=== PATIENT | male | born 1990 | race Caucasian/White ===

== ENCOUNTER 2021-03-18 04:23 | Emergency (ER) | payer BC ==
[2021-03-18] MEDS ORDERED: Ketorolac 30 MG/ML SDV IM ONE (04:50)
--- NOTE | 2021-03-18 05:05 | EDM.PDOC ---
ED HPI GENERAL MEDICAL PROBLEM - General Chief Complaint: Headache Stated Complaint: DIZZY Time Seen by Provider: 03/18/21 04:45 Source of Information: Reports: Patient History Limitations: Reports: No Limitations - History of Present Illness INITIAL COMMENTS - FREE TEXT/NARRATIVE: 30-year-old male arrives with a frontal headache for the past 6 days. No nausea or vomiting, no visual complaints, however the headache is been fairly persistent and this morning he stumbled and kind of tripped over himself which is unusual. He is concerned that the headache is persistent and his balance is off because there is "something wrong with my shunt". He has a [employer] shunt since he was a baby, he has never had problems with that but did have 1 or 2 surgical adjustments over the years. He does occasionally get headaches but they are very rarely this persistent. He has been taking Tylenol which helps "a little". He is vaccinated for Covid, has had no fevers or chills or illness. Onset: Gradual Duration: Day(s): (6 days of headache) Location: Reports: Other (Frontal headache, behind his eyes) Quality: Reports: Dull, Pressure Improves with: Reports: Other (Tylenol helps somewhat) Associated Symptoms: Reports: Headaches, Other (Concerned about his balance). Denies: Confusion, Weakness Middle Frontal Headache Pain Score (Numeric/FACES): 7 - Related Data Allergies Allergy/AdvReac Type Severity Reaction Status Date / Time Cephalosporins Allergy Cannot Verified 03/18/21 04:32 Remember Penicillins Allergy Cannot Verified 03/18/21 04:32 Remember Home Meds: Home Meds Escitalopram [Lexapro] 20 mg PO DAILY 03/18/21 [History] levETIRAcetam [Keppra] 500 mg PO DAILY 03/18/21 [History] Past Medical History HEENT History: Reports: Impaired Vision Musculoskeletal History: Reports: Fracture Other Musculoskeletal History: nose broken Neurological History: Reports: Seizure Psychiatric History: Reports: Anxiety - Infectious Disease History Infectious Disease History: Reports: Novel Coronavirus - Past Surgical History Neurological Surgical History: Reports: Other (See Below) Other Neurological Surgeries/Procedures: shunt Social & Family History - Tobacco Use Tobacco Use Status *Q: Never Tobacco User - Caffeine Use Caffeine Use: Reports: None - Recreational Drug Use Recreational Drug Use: No ED ROS GENERAL - Review of Systems Review Of Systems: See Below Constitutional: Denies: Fever, Chills, Malaise HEENT: Denies: Vision Change Respiratory: Denies: Shortness of Breath Cardiovascular: Denies: Chest Pain GI/Abdominal: Denies: Nausea, Vomiting Skin: Reports: No Symptoms Neurological: Reports: Dizziness, Headache Psychiatric: Reports: No Symptoms - Physical Exam Exam: See Below Exam Limited By: No Limitations General Appearance: Alert, No Apparent Distress Eye Exam: Bilateral Eye: Normal Inspection, PERRL Head Exam: Atraumatic. No: Facial Tenderness, Sinus Tenderness Neck: Supple, Non-Tender Respiratory/Chest: No Respiratory Distress, Lungs Clear GI/Abdominal: Non-Tender Neuro Exam (Abbreviated): Alert, Oriented, No Motor/Sensory Deficits, Other (Romberg is negative, no pronator drift) Extremities: Normal Inspection Psychiatric: Normal Affect, Normal Mood Course - Vital Signs Last Recorded V/S: Last Vital Signs Temp 95.9 F L 03/18/21 04:39 Pulse 96 03/18/21 04:39 Resp 16 03/18/21 04:39 BP 151/99 H 03/18/21 04:39 Pulse Ox 100 03/18/21 04:39 - Orders/Labs/Meds Orders: Active Orders 24 hr Category Date Time Status Isolation [COMM] Stat Oth 03/18/21 04:51 Ordered Labs: Laboratory Tests 03/18/21 Range/Units 05:08 Influenza Type A RNA Negative (NEGATIVE) RSV RNA ([facility]) Negative (NEGATIVE) Influenza Type B RNA Negative (NEGATIVE) SARS-CoV-2 RNA ([facility]) Negative (NEGATIVE) Meds: Medications Discontinued Medications Generic Name Dose Route Start Last Admin Trade Name Juvenal PRN Reason Stop Dose Admin Ketorolac Tromethamine 30 mg 03/18/21 04:50 03/18/21 04:58 Ketorolac 30 Mg/Ml Sdv IM 03/18/21 04:51 30 mg ONETIME ONE Administration - Re-Assessments/Exams Free Text/Narrative Re-Assessment/Exam: 03/18/21 05:05 Patient was given 30 mg of IM Toradol, CT scan of the head without contrast was ordered and a 4 Plex viral study. 03/18/21 05:54 After the Toradol shot his pain went from a 7 to a 3, CT scan was reassuring as there was no interval change, ventricular sizes were normal and shunt was in correct placement. 4 Plex viral study was negative. He was encouraged to rest for the next day or 2, take an anti-inflammatory on a regular basis and increase activity as tolerated. Departure - Departure Time of Disposition: 05:57 Disposition: Home, Self-Care 01 Clinical Impression: Frontal headache - Discharge Information Instructions: General Headache Without Cause, [id number] Referrals: PCP,None [Primary Care Provider] - Forms: ED Department Discharge Care Plan Goals: Take ibuprofen several times daily for the next couple of days, along with Tylenol if needed. Stay hydrated, increase activity as tolerated and return to work by . Return for recheck if not improving satisfactorily. Sepsis Event Note (ED) - Evaluation Sepsis Screening Result: No Definite Risk - Focused Exam Vital Signs: Vital Signs Temp Pulse Resp BP Pulse Ox 03/18/21 04:39 95.9 F L 96 16 151/99 H 100 - My Orders Last 24 Hours: My Active Orders 03/18/21 04:51 Isolation [COMM] Stat - Assessment/Plan Last 24 Hours: My Active Orders 03/18/21 04:51 Isolation [COMM] Stat
[2021-03-18 05:36] LABS: CORONAVIRUS COVID-19 NAA NEGATIVE (NEGATIVE)
--- NOTE | 2021-03-18 05:42 | CRLCT ---
For Patients: As a result of the Century Cures Act, medical imaging exams and procedure reports are released immediately into your electronic medical record. You may view this report before your referring provider. If you have questions, please contact your health care provider. INDICATION: Headache checking shunt TECHNIQUE: CT Head without i.v. contrast. Coronal and sagittal reformats were obtained. COMPARISON: 05/23/2012 FINDINGS: CSF space: The right frontal ventricular shunt has its tip near the right foramina Quintero without interval change. The ventricles are unchanged in size. 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 Brain: No evidence of mass, acute infarction or hemorrhage is seen. No mass-effect or midline shift is seen. Scattered calcifications of the right dura are noted without interval change. The brain parenchyma is otherwise normal in appearance with preservation of the miguel-white matter junction. Calvarium: The visualized paranasal sinuses are well aerated. The mastoid air cells are clear. The visualized orbits are grossly unremarkable. The calvarium is unremarkable in appearance with no fractures identified. IMPRESSION: 1. No evidence of acute infarction, intracranial hemorrhage, or mass-effect seen. Dictated by Franklin Pat MD @ 03/18/2021 5:40:55 AM Please note that all CT scans at this facility use dose modulation, iterative reconstruction, and/or weight-based dosing when appropriate to reduce radiation dose to as low as reasonably achievable. Dictated by: Franklin Pat MD @ 03/18/2021 05:40:59 (Electronically Signed)
== END 2021-03-18 05:59 | disposition home or self-care (01) ==
LOC: JP.ED 04:23
DX: R51.9 Headache, unspecified (principal); R56.9 Unspecified convulsions; Z88.1 Allergy status to other antibiotic agents; Z88.0 Allergy status to penicillin; Z79.899 Other long term (current) drug therapy; Z20.822 Contact with and (suspected) exposure to COVID-19
CPT/HCPCS: 0241U; 70450; 96372; 99284; J1885